=== PATIENT | male | born 2000 | race Caucasian/White ===

== ENCOUNTER 2022-12-21 12:34 | Emergency (ER) | payer BC ==
[~2022-12-21] VITALS: Ht 190.5 cm; Wt 104.0 kg
[2022-12-21 12:37] VITALS: BP 159/90
[2022-12-21] MEDS ORDERED: TETanus/Pertussis (Acell)/Diphther VAC/PF (Tdap-Adult) 0.5ml syringe IMVAC ONE (13:30)
[2022-12-21] MEDS ORDERED: LIDOCAINE 2%/EPI 1:100,000 inj. Multi-dose 20 ML VIAL IJ ONE (13:30)
== END 2022-12-21 14:47 | disposition home or self-care (01) ==
LOC: ER 12:34
DX: S61.012A Laceration without foreign body of left thumb without damage to nail, initial encounter (principal); W26.8XXA Contact with other sharp object(s), not elsewhere classified, initial encounter; Y93.89 Activity, other specified; Y92.89 Other specified places as the place of occurrence of the external cause; Y99.8 Other external cause status
CPT/HCPCS: 12004; 73100; 90715; 99283; A6258; A6449